=== PATIENT | female | born 1975 | race African-American/Black ===

== ENCOUNTER → 2017-09-26 | Outpatient (CLI) | payer MEDICARE ==
[~2017-09-26] MED LIST: GADOBUTROL 7.5 MMOL/7.5 ML VIAL IV
== END | disposition home or self-care (01) ==
LOC: KCIC MRI 13:42
DX: D35.2 Benign neoplasm of pituitary gland (principal); N91.1 Secondary amenorrhea
CPT/HCPCS: 70553

== ENCOUNTER → 2017-12-12 | Outpatient (CLI) | payer MEDICARE ==
[2016-01-15 22:32] VITALS: BP 129/77
[~2017-12-12] MED LIST changes: +BENZ2AMP4 IJ; +ENOX40DI SQ; -GADOBUTROL 7.5 MMOL/7.5 ML VIAL IV; +OXYC5TAB88 PO; +RISP4TAB35 PO; +SERT50TA PO; +TAMS0.4C97 PO; +ZIPR80CA2 PO
== END | disposition home or self-care (01) ==
LOC: LAB 11:08
PROVIDERS: ATTEND Obstetrics & Gynecology
DX: N93.8 Other specified abnormal uterine and vaginal bleeding (principal); E22.1 Hyperprolactinemia
CPT/HCPCS: 36415; 84146